=== PATIENT | male | born 1990 | race African-American/Black ===

== ENCOUNTER → 2019-04-11 | Outpatient (CLI) | payer BC | LOC: HYPER 03-16 13:21 | DX: L97.321 Non-pressure chronic ulcer of left ankle limited to breakdown of skin (principal); L97.511 Non-pressure chronic ulcer of other part of right foot limited to breakdown of skin; L97.521 Non-pressure chronic ulcer of other part of left foot limited to breakdown of skin; L29.9 Pruritus, unspecified; E02 Subclinical iodine-deficiency hypothyroidism; F41.9 Anxiety disorder, unspecified; F43.12 Post-traumatic stress disorder, chronic; F32.9 Major depressive disorder, single episode, unspecified ==

== ENCOUNTER → 2019-04-29 | Outpatient (CLI) | payer BC | LOC: HYPER 08:51 | DX: L97.321 Non-pressure chronic ulcer of left ankle limited to breakdown of skin (principal); L97.311 Non-pressure chronic ulcer of right ankle limited to breakdown of skin; L97.511 Non-pressure chronic ulcer of other part of right foot limited to breakdown of skin; L29.9 Pruritus, unspecified; E02 Subclinical iodine-deficiency hypothyroidism; E03.8 Other specified hypothyroidism; F41.9 Anxiety disorder, unspecified; F43.12 Post-traumatic stress disorder, chronic; F32.9 Major depressive disorder, single episode, unspecified; F98.8 Other specified behavioral and emotional disorders with onset usually occurring in childhood and adolescence ==